=== PATIENT | male | born 1955 | race Caucasian/White ===

== ENCOUNTER → 2016-06-13 | Day surgery (SDC) | payer OTHER ==
[~2016-06-13] VITALS: Ht 170.2 cm; Wt 102.1 kg
[~2016-06-13] MED LIST: ASPIRIN EC81 M1 PO; LIPITOR10 M1 PO; OXYCODONE HCL5 M1 PO; PROAIR HFA8.5 GM INH; SINGULAIR10 M1 PO; ZYLOPRIM100 M1 PO
--- NOTE | 2016-06-13 12:31 | Operative Report ---
Operative/Inv Procedure Report Surgery Date: 06/13/16 Name of Procedure: Cystoscopy, right ureteroscopy, basket extraction of 2 proximal ureteral calculi , exchange of right double-J ureteral stent Pre-Operative Diagnosis: Right proximal ureteral calculi Post-Operative Diagnosis: Same Estimated Blood Loss: scant Surgeon/Bindery Assistant: Jolene BLAIR,JENNIFER Giles Anesthesia: laryngeal mask airway Drains: 24 cm, 6 fr R double J ureteral stent with long suture Specimens: Urine C&S and R ureteral calculi Complications: none Condition: Stable Operative Indication: R proximal ureteral calculi Operative/Procedure Note Note: The patient was taken to the operating room and identified. He was placed in supine position on the operating table. Timeout was executed appropriately. Gen. anesthesia was induced via LMA. He was then placed in dorsolithotomy position and prepped and draped in usual fashion for cystoscopy. Surgical pause was executed appropriately. The 22 Filipino cystoscope sheath was placed into the bladder direct vision using the 30 lens. Anterior urethra was normal. Prostatic urethra was nonobstructing and the bladder was normal other than edema around the right ureteral orifice and the distal portion of the right ureteral stent was visualized. His was grasped with a grasper and pulled out the external urethral meatus. A guidewire was placed through the stent which was subsequently removed. The rigid ureteroscope was advanced through the urethra into the bladder and into the right ureter. It was advanced up the level of L3/ L4. At this spot to stones were seen. Using a 0 tip basket the smaller stone was engaged and removed. Ureteroscope was placed back up to the same level and using the same basket the second stone was removed as well. At this point ureteroscope was again advanced up the level of the kidney and the ureter was inspected as the ureteroscope was removed. No further calculi were seen. Some contrast had been injected into the right renal pelvis when the ureteroscope was at that level. The cystoscope was back loaded onto the guidewire. Under visual fluoroscopic control a 24 cm 6 Filipino right double-J ureteral stent was placed. Guidewire was removed and the proximal and the stent was seen to coil appropriately in the right renal pelvis and the distal end was coiled in the bladder. A long suture was left attached the distal end of the stent exiting the urethra. Patient tolerated the procedure wellcompletion was taken to recovery room in stable condition. Findings: 2 proximal R ureteral calculi Discharge Disposition: PACU
--- NOTE | 2016-06-13 17:42 | RADIOLOGY REPORT ---
EXAMINATION: INTRAOPERATIVE FLUOROSCOPY DURING RIGHT URETEROSCOPY. CLINICAL INDICATION: Right ureteroscopy. COMPARISON: None. TECHNIQUE: The procedure was performed by Dr. Trinh in the operating room. FLUOROSCOPY TIME: 0 minutes 18 seconds. FINDINGS: Right ureteroscopy was performed with placement of a double-J stent. IMPRESSION: Intraoperative fluoroscopy was utilized by Dr. Trinh during right ureteroscopy and stent placement. Please refer to the operative report for a detailed description of the procedure and the real-time findings made and acted upon by the surgeon.
== END ==
LOC: STS 01:34
DX: N20.1 Calculus of ureter (principal); Z87.442 Personal history of urinary calculi; E78.5 Hyperlipidemia, unspecified; M10.9 Gout, unspecified; E78.00 Pure hypercholesterolemia, unspecified
CPT/HCPCS: 74000; 82355; 87086; C2617; J0690; J2250